=== PATIENT | female | born 1960 | race Caucasian/White ===

== ENCOUNTER → 2017-02-26 | Outpatient (CLI) | payer OTHER | LOC: FIMAGING 08:59 | PROVIDERS: ATTEND Nurse Practitioner Women's Health | DX: Z12.31 Encounter for screening mammogram for malignant neoplasm of breast (principal); Z80.3 Family history of malignant neoplasm of breast | CPT/HCPCS: G0202 ==

== ENCOUNTER → 2017-05-07 | Outpatient (CLI) | payer OTHER | LOC: FIMAGING 15:21 | PROVIDERS: ATTEND Nurse Practitioner Women's Health | DX: Z13.820 Encounter for screening for osteoporosis (principal); R29.890 Loss of height ==

== ENCOUNTER 2018-10-26 17:03 | Emergency (ER) | payer OTHER ==
[2018-10-26 17:09] VITALS: BP 140/78
[2018-10-26] MEDS ORDERED: NS 1,000 ML IV ONE (17:27)
--- NOTE | 2018-10-26 17:32 | EDPHY ---
H & P Stated Complaint: L lower quad pain x 2 days chills Time Seen by Provider: 10/26/18 17:06 HPI/ROS: CHIEF COMPLAINT: Left lower quadrant pain HISTORY OF PRESENT ILLNESS: 58-year-old female with diverticulosis presents with left lower quadrant pain. Onset of left lower quadrant pain 2 days ago. The pain is constant and moderate, alleviated with ibuprofen. Associated with nausea yesterday. No vomiting, diarrhea or fever. Diagnosed with colitis by CT scan in August 2018 and was placed on Cipro with relief. History of diverticulitis in 2012. REVIEW OF SYSTEMS: complete 10 point ROS reviewed and is negative except for the noted elements in the HPI - Medical/Surgical History Hx Asthma: No Hx Chronic Respiratory Disease: No Hx Diabetes: No Hx Cardiac Disease: No Hx Renal Disease: No Hx Cirrhosis: No Hx Alcoholism: No Hx HIV/AIDS: No Hx Splenectomy or Spleen Trauma: No Other PMH: diverticulitis. tonsillectomy - Social History Smoking Status: Never smoked Alcohol Use: Sober Drug Use: None - Physical Exam Exam: General Appearance: Alert, pleasant Eyes: Pupils equal and round, no conjunctival pallor ENT, Mouth: Mucous membranes moist Neck: Normal inspection Respiratory: Lungs are clear to auscultation Cardiovascular: Regular rate and rhythm Gastrointestinal: Abdomen is soft, left lower quadrant tenderness, no peritoneal signs Neurological: A&O, nonfocal, normal gait Skin: Warm and dry Extremities: Normal inspection Psychiatric: Mood and affect normal Constitutional: Initial Vital Signs Temperature (C) 37.2 C 10/26/18 17:06 Heart Rate 95 10/26/18 17:06 Respiratory Rate 20 10/26/18 17:06 Blood Pressure 140/78 H 10/26/18 17:06 O2 Sat (%) 99 10/26/18 17:06 O2 Delivery Mode Room Air Allergies/Adverse Reactions: No Known Allergies Allergy (Verified 10/26/18 17:05) Home Medications: Medication Instructions Recorded Ciprofloxacin [Cipro] 500 mg PO BID #20 tab 10/26/18 metroNIDAZOLE [Flagyl 500 mg (*)] 500 mg PO BID #20 tab 10/26/18 Medical Decision Making ED Course/Re-evaluation: This patient presents with left lower quadrant pain, most consistent with acute diverticulitis. The patient declines labs and CT scan. She prefers to be treated with antibiotics and will return for worsening symptoms. She will call her licensed home inspector at [facility] to make an appointment for recheck in 2 days. Warning signs discussed. Differential Diagnosis: Differential diagnosis includes though it is not limited to appendicitis, cholecystitis, diverticulitis, pyelonephritis, bowel perforation, small bowel obstruction. Departure - Departure Disposition: Home, Routine, Self-Care Clinical Impression: Acute diverticulitis Condition: Good Instructions: Diverticulitis (ED), Diverticulitis Diet (ED) Additional Instructions: Take ibuprofen or Tylenol as needed for pain. Return for worsening symptoms, including severe pain, fever or vomiting. Make an appointment to see your licensed home inspector in 2 days for recheck. Referrals: Quinten Farley MD [Primary Care Provider] - As per Instructions Prescriptions: Ciprofloxacin [Cipro] 500 mg PO BID #20 tab metroNIDAZOLE [Flagyl 500 mg (*)] 500 mg PO BID #20 tab
== END 2018-10-26 17:48 | disposition home or self-care (01) ==
DX: K57.92 Diverticulitis of intestine, part unspecified, without perforation or abscess without bleeding (principal)